=== PATIENT | female | born 1965 | race Caucasian/White ===

== ENCOUNTER 2017-04-26 18:02 | Emergency (ER) | payer OTHER, BC ==
[~2017-04-26] VITALS: Ht 170.2 cm; Wt 69.2 kg
[2017-04-26] MEDS ORDERED: PREDNISONE10 M1 PO (20:32)
[2017-04-26] MEDS ORDERED: FIORICET 50-301 EAC1 PO (20:32)
[2017-04-26 20:53] VITALS: BP 144/96
== END 2017-04-26 20:54 | disposition home or self-care (01) ==
LOC: EME 18:02
DX: R51 Headache (principal); V49.10XA Passenger injured in collision with unspecified motor vehicles in nontraffic accident, initial encounter
CPT/HCPCS: 70450; 99281; 99284